=== PATIENT | female | born 1995 | race American Indian/Alaskan Native ===

== ENCOUNTER 2023-09-23 22:59 | Emergency (ER) | payer OTHER, SELFPAY ==
[2023-09-23 23:16] VITALS: BP 145/102; PULSE 104; RESP 16; TEMP 36.4; O2SAT 98; BMI 32.9
[2023-09-23] MEDS: Ondansetron ODT 4 MG TAB.RAPDIS SUBLINGUAL (23:22)
[2023-09-23 23:37] LABS: Basophils Absolute Auto 0.1 X10*3/uL (0.0-0.2); Basophils Percent Auto 0.7 % (0-2); Eosinophils Percent Auto 0.6 % (0-4); Hematocrit 37.4 % (37.0-47.0); Hemoglobin 13.3 g/dl (12.0-16.0); Imm Gran Abs Auto 0.02 X10*3/uL (0.00-0.03); Imm Gran Pct Auto 0.3 % (0.0-0.4); Lymphocytes Absolute Auto 1.5 X10*3/uL (1.2-4.9); Lymphocytes Percent Auto 22.4 % (20-40); MANUAL DIFF FLAG NO; Mean Corpuscular HGB Conc 35.6 g/dl (31.0-35.0); Mean Corpuscular Hemoglobin 29.2 pg (27.0-33.0); Mean Platelet Volume 9.8 fL (9.4-12.3); Monocytes Absolute Auto 0.5 X10*3/uL (0.1-1.2); Monocytes Percent Auto 6.9 % (2-11); Neutrophils Absolute Auto 4.7 x10*3/uL (2.0-8.3); Neutrophils Percent Auto 69.1 % (45-73); Platelet Count 446 X10*3/uL (160-400); Red Blood Count 4.56 X10*6/uL (4.20-5.50); Red Cell Distribution Width 15.4 % (11.0-16.0); White Blood Count 6.8 X10*3/uL (4.8-10.8)
[2023-09-23 23:46] LABS: UPreg QC Valid YES; Urine Pregnancy NEGATIVE (NEGATIVE)
[2023-09-23 23:47] LABS: Appearance Urine Hazy; Color Urine Yellow; Glucose Urine UA Negative (Negative); Leukocyte Esterase Urine Negative (Negative); Nitrite Urine Negative (Negative); Specific Gravity - Urine >= 1.030 (1.005-1.025); Urine Blood Negative (Negative); Urine Ketones Negative (Negative); Urine Protein Trace mg/dL (Neg-Trace)
[2023-09-23 23:49] LABS: Anion Gap 19 (12-20); Blood Urea Nitrogen 17 mg/dL (9-16); Calcium 8.7 mg/dL (8.4-10.2); Carbon Dioxide 17 mmol/L (22-29); Chloride 109 mmol/L (96-108); Creatinine Clr Calc Pharmacy 92.3; Estimated Glomerular Filt Rate > 60; Glucose Random 95 mg/dL (60-115); Potassium 4.1 mmol/L (3.3-5.1); Sodium 141 mmol/L (135-145)
--- NOTE | 2023-09-24 01:39 | ED.NAVMDI ---
HPI - Nausea/Vomiting/Diarrhea General Chief complaint: Nausea/Vomiting/Diarrhea Stated complaint: dizzy,weak Time Seen by Provider: 09/24/23 01:35 Source: patient Mode of arrival: ambulatory Limitations: no limitations History of Present Illness ED Provider: dao GEE Narrative: Patient with history of recurrent abdominal discomfort with headache with nausea vomiting almost every month during menstruation for many years has not seen any specialist or PCP for diagnosis has light sensitivity and nausea last vomiting was few hours ago no diarrhea no fever no chills Related Data Previous Rx's ?Medication ?Instructions ?Recorded bwwutskoop-hyredxwlxhnpc-kxdokbio 1 tab PO Q6H PRN haeadace #20 tabs 09/24/23 50 mg-325 mg-40 mg tablet omeprazole 40 mg capsule,delayed 40 mg PO DAILY #20 caps 09/24/23 release ondansetron 4 mg disintegrating 4 mg PO Q6-8H PRN nausea and 09/24/23 tablet vomiting #20 tabs sumatriptan succinate 50 mg tablet 50 mg PO Q2H PRN migraine headache 09/24/23 (Imitrex) #10 tabs Allergies Allergy/AdvReac Type Severity Reaction Status Date / Time No Known Allergies Allergy Verified 09/23/23 23:18 [No Known Allergies*] Review of Systems Review of Systems: Yes all other systems are reviewed and are negative PMFSH Past Medical History Medical History (Updated 09/24/23 @ 03:04 by Boston Benitez MD) Migraine Social History Social History Advance Directives: No Advance Directives Information Provided: Yes Patient : No Physical Exam Vital Signs: Vital Signs: Last Vital Signs Temp 98.8 F 09/24/23 03:52 Pulse 88 09/24/23 03:52 Resp 16 09/24/23 03:52 BP 129/74 09/24/23 03:52 Pulse Ox 98 09/24/23 03:52 O2 Del Method Room Air 09/24/23 03:52 BMI result Body Mass Index 32.9 Appearance: Alert. Oriented X3. No acute distress. Eyes: PERRLA, No Nystagmus ENT: Pharynx normal. Oral Mucosa moist temporal artery nontender Neck: Normal inspection. Neck supple. CVS: Normal heart rate and rhythm. Pulses normal. Respiratory: No respiratory distress. Equal air entry bilateral, no wheezing/rales/rhonchi Abdomen: Soft and nontender. Bowel sounds are present, no mass palpable, no CVA tenderness Skin: Skin warm and dry. Normal skin color. Normal skin turgor. Extremities: No lower extremity edema. No calf tenderness Neuro: Oriented X 3. No motor deficit. Medications Administered Discontinued Medications Generic Name Dose Route Start Last Admin Trade Name Freq PRN Reason Stop Dose Admin Acetaminophen/Butalbital/Caffeine 1 tab 09/24/23 02:15 09/24/23 02:27 Butalb/Acetamin/Caff 50/325/40 Tablet PO 09/24/23 02:16 1 tab ONCE ONE Administration Al Hydroxide/Mg Hydroxide 30 ml 09/24/23 03:01 09/24/23 03:32 Magnesium Hydrox/Alum Hydrox 30 Ml Oral.Susp PO 09/24/23 03:02 30 ml ONCE ONE Administration Omeprazole 40 mg 09/24/23 03:01 09/24/23 03:32 Omeprazole 40 Mg Capsule.Dr PO 09/24/23 03:02 40 mg ONCE ONE Administration Ondansetron HCl 4 mg 09/23/23 23:18 09/23/23 23:22 Ondansetron Odt 4 Mg Tab.Rapdis SUBLINGUAL 09/23/23 23:19 4 mg ONCE ONE Administration Sumatriptan Succinate 6 mg 09/24/23 02:15 09/24/23 02:26 Sumatriptan Succinate 6 Mg/0.5 Ml Vial SUBCUT 09/24/23 02:16 6 mg ONCE ONE Administration Medical Decision Making Medical Decision Making [facility] Narrative: Patient with recurrent vomiting and abdominal discomfort during menstruation likely abdominal migraine will treat with Imitrex and see the response , labs are stable patient feels slightly better will discharge patient home Differential Diagnosis Differential Diagnoses: The differential diagnosis associated with the presentation includes Migraine headache/gastritis Lab Data [facility] Lab Attestation statement: I reviewed the patient's lab results. 09/23/23 23:31 09/23/23 23:31 Labs: Lab Results 09/23/23 Range/Units 23:31 WBC 6.8 (4.8-10.8) X10*3/uL RBC 4.56 (4.20-5.50) X10*6/uL Hgb 13.3 (12.0-16.0) g/dl Hct 37.4 (37.0-47.0) % MCV 82.0 (80.0-98.0) fL MCH 29.2 (27.0-33.0) pg MCHC 35.6 H (31.0-35.0) g/dl RDW 15.4 (11.0-16.0) % Plt Count 446 H (160-400) X10*3/uL MPV 9.8 (9.4-12.3) fL Immature Gran % (Auto) 0.3 (0.0-0.4) % Neut % (Auto) 69.1 (45-73) % Lymph % (Auto) 22.4 (20-40) % [place] % (Auto) 6.9 (2-11) % Eos % (Auto) 0.6 (0-4) % Baso % (Auto) 0.7 (0-2) % Lymph # (Auto) 1.5 (1.2-4.9) X10*3/uL [place] # (Auto) 0.5 (0.1-1.2) X10*3/uL Eos # (Auto) 0.0 (0.0-0.4) X10*3/uL Baso # (Auto) 0.1 (0.0-0.2) X10*3/uL Abs Immat Gran (auto) 0.02 (0.00-0.03) X10*3/uL Absolute Neuts (auto) 4.7 (2.0-8.3) x10*3/uL Absolute Nucleated RBC 0.000 (0.0-0.012) X10*3/uL Nucleated RBC % (auto) 0.0 (0.0-0.2) /100WBC Sodium 141 (135-145) mmol/L Potassium 4.1 (3.3-5.1) mmol/L Chloride 109 H (96-108) mmol/L Carbon Dioxide 17 L (22-29) mmol/L Anion Gap 19 (12-20) BUN 17 H (9-16) mg/dL Creatinine 0.89 (0.5-1.4) mg/dL Estim Creat Clear Calc 92.3 Estimated GFR > 60 Random Glucose 95 (60-115) mg/dL Calcium 8.7 (8.4-10.2) mg/dL Urine Color Yellow Urine Appearance Hazy Urine pH 7.0 (5.0-9.0) Ur Specific [place] >= 1.030 H (1.005-1.025) Urine Protein Trace (Neg-Trace) mg/dL Urine Glucose (UA) Negative (Negative) mg/dL Urine Ketones Negative (Negative) mg/dL Urine Blood Negative (Negative) Urine Nitrite Negative (Negative) Ur Leukocyte Esterase Negative (Negative) Urine Test NEGATIVE (NEGATIVE) Discharge Plan Discharge Clinical Impression: Headache, migraine, Gastritis Patient Disposition: Home, Self-Care Instructions: Gastritis (ED), Migraine Headache (ED) Additional Instructions: Drink plenty of fluids Take medication for migraine headache as advised Imitrex 50 mg at onset of headache may repeat in 2 hours if headache continues maximum 2 tablets in 24 hours Fioricet 1 tablet every 6 hours as needed for headaches Medicine for nausea and gastritis as prescribed Follow with your PCP if not better Prescriptions: New sumatriptan succinate [Imitrex] 50 mg tablet 50 mg PO Q2H PRN (Reason: migraine headache) Qty: 10 0RF Rx Instructions: do not exceed 2 doses per 24 hrs yfnezexeed-ufuirayhwicxy-iavc 50-325-40 mg tablet 1 tab PO Q6H PRN (Reason: haeadace) Qty: 20 0RF omeprazole 40 mg capsule,delayed release(DR/EC) 40 mg PO DAILY Qty: 20 0RF ondansetron 4 mg tablet,disintegrating 4 mg PO Q6-8H PRN (Reason: nausea and vomiting) Qty: 20 0RF Stand Alone Forms: Work/School Release Interventions: ED Discharge Assessment Last Done: 09/24/23 03:52 Discharge Date/Time: 09/24/23 03:53 Print Language: Upper Sorbian
[2023-09-24 02:00] VITALS: BP 139/74; PULSE 95; RESP 18; TEMP 37.2; O2SAT 97
[2023-09-24] MEDS: SUMAtriptan succinate 6 MG/0.5 ML VIAL SUBCUT (02:26)
[2023-09-24] MEDS: Butalb/Acetamin/Caff 50/325/40 TABLET 1 TAB PO (02:27)
[2023-09-24] MEDS: Omeprazole 40 MG CAPSULE.DR PO (03:32)
[2023-09-24] MEDS: Magnesium Hydrox/Alum Hydrox 30 ML ORAL.SUSP PO (03:32)
[2023-09-24 03:52] VITALS: BP 129/74; PULSE 88; RESP 16; TEMP 37.1; O2SAT 98
== END 2023-09-24 03:53 | disposition home or self-care (01) ==
PROVIDERS: Emergency Provider Internal Medicine
DX: G43.909 Migraine, unspecified, not intractable, without status migrainosus (principal); K29.70 Gastritis, unspecified, without bleeding; R11.2 Nausea with vomiting, unspecified; Z79.899 Other long term (current) drug therapy
CPT/HCPCS: 36415; 80048; 81003; 81025; 85025; 96372; 99284; J3030

== ENCOUNTER 2023-12-17 14:46 | Emergency (ER) | payer OTHER, SELFPAY ==
--- NOTE | 2023-12-17 14:47 | ECG_ITS ---
Test Reason : CHEST PAIN Blood Pressure : / mmHG Vent. Rate : 119 BPM Atrial Rate : 119 BPM P-R Int : 114 ms QRS Dur : 060 ms QT Int : 308 ms P-R-T Axes : 078 041 007 degrees QTc Int : 433 ms Sinus tachycardia Possible Left atrial enlargement Nonspecific ST abnormality Abnormal ECG No previous ECGs available Referred By: Verna Mesa Electronically Signed By:LURDES SMITH
--- NOTE | 2023-12-17 15:04 | ED_ITS ---
HPI - Chest Pain General Chief Complaint: Nausea/Vomiting/Diarrhea Stated Complaint: Chest pain, SOB Time Seen by Provider: 12/17/23 16:37 Source: patient, RN notes reviewed and old records reviewed Mode of arrival: ambulatory History of Present Illness ED Provider: Verna Mesa PA-C HPI narrative: 28-year-old female with a past medical history of migraines presenting to the ED complaining of possible EtOH or food poisoning with associated nausea, vomiting, and inability to tolerate p.o. x3 days. States went out on Saturday had some drinks and went to [facility] for some Ramen & then developed symptoms. Also reports chest pain and SOB x today. Is currently on menses. Does report history of similar symptoms in the past during menstruation. Admits to seen in our ED a few months ago for similar symptoms. Denies fever, chills, abdominal pain, SOB at present, urinary symptoms Related Data Previous Rx's ?Medication ?Instructions ?Recorded dgdyjpoggu-pvikfjohwvkez-uhketaug 1 tab PO Q6H PRN haeadace #20 tabs 09/24/23 50 mg-325 mg-40 mg tablet omeprazole 40 mg capsule,delayed 40 mg PO DAILY #20 caps 09/24/23 release ondansetron 4 mg disintegrating 4 mg PO Q6-8H PRN nausea and 09/24/23 tablet vomiting #20 tabs sumatriptan succinate 50 mg tablet 50 mg PO Q2H PRN migraine headache 09/24/23 (Imitrex) #10 tabs nitrofurantoin 100 mg PO Q12H 7 days #14 caps 12/17/23 monohydrate/macrocrystals 100 mg capsule (Macrobid) ondansetron 4 mg disintegrating 4 mg PO Q8H PRN nausea and 12/17/23 tablet vomiting #10 tabs Allergies Allergy/AdvReac Type Severity Reaction Status Date / Time No Known Allergies Allergy Verified 12/17/23 15:06 [No Known Allergies*] Review of Systems 2 Review of Systems: Yes all other systems are reviewed and are negative Constitutional: Constitutional: Reports as per HPI [facility] Past Medical History Attestation statement: The following information was validated with the patient. Source: old records reviewed Medical History Migraine Social History Social History Alcohol intake: current Smoked in Last 30 Days: No Use of substances other than those prescribed or required for medical reasons: No Advance Directives: No Advance Directives Information Provided: Yes Do you have a plan to hurt others: No Plan Physical Exam 2 Vital Signs: Vital Signs: Last Vital Signs Temp 98.9 F 12/17/23 19:33 Pulse 88 12/17/23 19:33 Resp 18 12/17/23 19:33 BP 117/77 12/17/23 19:33 Pulse Ox 100 12/17/23 19:33 O2 Del Method Room Air 12/17/23 19:33 BMI result Body Mass Index 32.9 Const: General: cooperative, healthy appearing and no acute distress O rientation/consciousness: patient oriented x3 Limitations: no limitations HEENT: Head: Yes normal to inspection and Yes atraumatic Ears: hearing grossly normal bilaterally General nose exam: Normal external nose present Face and sinus: Yes normal facial exam Eyes: General: appearance normal, both eyes and all related structures EOM: EOMs intact bilaterally Neck: Neck: Yes normal visual inspection and Yes no meningeal signs Resp: Effort & Inspection: normal respiratory effort and no respiratory distress Auscultation: clear to auscultation bilaterally, no crackles, no rales, no rhonchi and no wheezes Cardio: Rate: regular rate Heart sounds: S1 normal heart sound present and S2 normal heart sound present GI: Inspection: Yes normal to inspection Palpation (GI): Soft to palpation, nontender, no guarding and not rigid : General: Yes no CVA tenderness Back/Spine/Pelvis: Back: no CVA tenderness Skin: Rashes: no rashes Wounds: no wounds Neuro: General: patient oriented x3, tone normal and no meningeal signs C ranial nerves: Yes CN's II-XII intact bilaterally Gait exam (Neuro): Normal gait present Extrem: General: Yes normal to inspection Course Course Course Narrative: This is a Rapid Medical Exam performed in triage by Verna Mesa PA-C. Full HPI, ROS and PE to be performed by primary ED provider. 28-year-old female presenting to the ED c/o concern for possible alcohol or food poisoning with nausea, vomiting & inability to tolerate PO x3 days. Admits chest pain x today w/SOB. Admits to drinking Saturday night. denies abdominal pain. LMP now. Admits to similar symptoms in the past, has been evaluated in our ED. PE: abdomen soft & nontender Plan: ekg, labs, UA -1700--no leukocytosis. Troponin negative. Mildly elevated AST/ALT. Labs otherwise reassuring -UA contaminated however with positive nitrates, wbc's, and bacteria > will tx with Abx -tox screen negative -viral studies negative > patient reports symptomatic improvement & tolerated PO in the ED without difficulty Results discussed with patient including worrisome signs and symptoms and strict return precautions, and when to return to the emergency department. They verbalized understanding and feel safe for discharge at this time. Medications Administered Discontinued Medications Generic Name Dose Route Start Last Admin Trade Name Marguerite PRN Reason Stop Dose Admin Al Hydroxide/Mg Hydroxide 30 ml 12/17/23 17:02 12/17/23 17:13 Magnesium Hydrox/Alum Hydrox 30 Ml Oral.Susp PO 12/17/23 17:03 30 ml ONCE ONE Administration Famotidine 20 mg 12/17/23 17:02 12/17/23 17:13 Famotidine/Pf 20 Mg/2 Ml Vial IVPUSH 12/17/23 17:03 20 mg ONCE ONE Administration Sodium Chloride 1,000 mls @ 999 mls/hr 12/17/23 17:00 12/17/23 18:03 Ns IV 12/17/23 18:00 Infused .Q1H1M GEORGE Infusion Ondansetron HCl 4 mg 12/17/23 16:47 12/17/23 16:51 Ondansetron Hcl 4 Mg/2 Ml Vial IVPUSH 12/17/23 16:48 4 mg ONCE ONE Administration Medical Decision Making Medical Decision Making MDM Narrative: 28-year-old female with a past medical history of migraines presenting to the ED complaining of possible EtOH or food poisoning with associated nausea, vomiting, and inability to tolerate p.o. x3 days. Also reports chest pain and SOB x today. On exam hypertensive, tachycardic, NAD, nontoxic appearing, lungs CTA, abdomen soft/nontender. Concern for ETOH/food poisoning vs gastroenteritis vs menstruation complication vs viral illness. Low suspicion for intra-abdominal process including cholecystitis/pancreatitis/appendicitis or diverticulitis. Unlikely PE/ACS. Rule out Plan: EKG, labs, UA, , viral testing, IVF, antiemetic, p.o. trial, re- evaluate Please refer to course for remaining clinical decision making, interpretation of labs/imaging results, and discussions with consultants and/or family members. Differential Diagnosis Differential Diagnoses: The differential diagnosis associated with the presentation includes As above Admission/Observation Consideration of admission/observation: Escalation of care including admission/observation considered Lab Data MDM Lab Attestation statement: I reviewed the patient's lab results. 12/17/23 15:41 12/17/23 15:41 Labs: Lab Results 12/17/23 12/17/23 12/17/23 Range/Units 15:38 15:41 16:15 WBC 8.0 (4.8-10.8) X10*3/uL RBC 4.35 (4.20-5.50) X10*6/uL Hgb 12.8 (12.0-16.0) g/dl Hct 37.5 (37.0-47.0) % MCV 86.2 (80.0-98.0) fL MCH 29.4 (27.0-33.0) pg MCHC 34.1 (31.0-35.0) g/dl RDW 14.1 (11.0-16.0) % Plt Count 422 H (160-400) X10*3/uL MPV 10.1 (9.4-12.3) fL Immature Gran % (Auto) 0.2 (0.0-0.4) % Neut % (Auto) 81.1 H (45-73) % Lymph % (Auto) 13.8 L (20-40) % [place] % (Auto) 4.0 (2-11) % Eos % (Auto) 0.4 (0-4) % Baso % (Auto) 0.5 (0-2) % Lymph # (Auto) 1.1 L (1.2-4.9) X10*3/uL [place] # (Auto) 0.3 (0.1-1.2) X10*3/uL Eos # (Auto) 0.0 (0.0-0.4) X10*3/uL Baso # (Auto) 0.0 (0.0-0.2) X10*3/uL Abs Immat Gran (auto) 0.02 (0.00-0.03) X10*3/uL Absolute Neuts (auto) 6.5 (2.0-8.3) x10*3/uL Absolute Nucleated RBC 0.000 (0.0-0.012) X10*3/uL Nucleated RBC % (auto) 0.0 (0.0-0.2) /100WBC Sodium 140 (135-145) mmol/L Potassium 4.2 (3.3-5.1) mmol/L Chloride 105 (96-108) mmol/L Carbon Dioxide 22 (22-29) mmol/L Anion Gap 17 (12-20) BUN 14 (9-16) mg/dL Creatinine 1.07 (0.5-1.4) mg/dL Estim Creat Clear Calc 73.8 Estimated GFR > 60 Random Glucose 89 (60-115) mg/dL Calcium 8.9 (8.4-10.2) mg/dL Magnesium 1.6 (1.6-2.6) mg/dL Total Bilirubin 0.7 (0.0-1.0) mg/dL Direct Bilirubin 0.2 (0.0-0.5) mg/dL AST 47 H (5-31) U/L ALT 65 H (0-31) U/L Alkaline Phosphatase 65 (39-117) U/L Troponin I High Sens < 2.7 (<3.5-17.0) ng/L Total Protein 7.6 (6.5-8.0) g/dL Albumin 4.3 (3.5-5.0) g/dL Lipase 12 (8-78) U/L Urine Color Dark Yellow Urine Appearance Cloudy Urine pH 6.0 (5.0-9.0) Ur Specific [place] >= 1.030 H (1.005-1.025) Urine Protein 30 (1+) H (Neg-Trace) mg/dL Urine Glucose (UA) Negative (Negative) mg/dL Urine Ketones 80 (Negative) mg/dL Urine Blood Large (3+) H (Negative) Urine Nitrite Positive H (Negative) Ur Leukocyte Esterase Negative (Negative) Urine RBC 6-10 H (0-2) /HPF Urine WBC 11-20 H (0-5) /HPF Ur Squamous Epith Cells 11-20 (0-2) /HPF Urine Bacteria 4+ (None Seen) Hyaline Casts 0-2 (0-2) /LPF Urine Test NEGATIVE (NEGATIVE) Urine Opiates Screen Not Detected (Not Detect) Ur Buprenorphine Scrn Not Detected (Not Detect) ng/mL Ur Oxycodone Screen Not Detected (Not Detect) ng/mL Urine Methadone Screen Not Detected (Not Detect) ng/mL Urine Fentanyl Screen Not Detected (Not Detect) Ur Barbiturates Screen Not Detected (Not Detect) Ur Phencyclidine Scrn Not Detected (Not Detect) Ur Amphetamines Screen Not Detected (Not Detect) U Benzodiazepines Scrn Not Detected (Not Detect) Urine Cocaine Screen Not Detected (Not Detect) U Marijuana (THC) Screen Not Detected (Not Detect) Ethyl Alcohol < 10 mg/dL Influenza Type A (PCR) NEGATIVE (Negative) Influenza Type B (PCR) NEGATIVE (Negative) RSV RNA Qual (PCR) NEGATIVE (Negative) SARS-CoV-2 RNA (RT-PCR) NEGATIVE (Negative) Independent Interpretation I performed an independent interpretation of an: EKG (My interpretation EKG sinus tachycardia rate of 119. NE interval 114. QTC 433. No previous to compare. No STEMI) Radiology Impression Discussion of test interpretation with radiology: I have reviewed the radiologist's reading. External Record Review External record reviewed: Inpatient record, Office record, Outpatient record, Prior outpatient labs, Prior outpatient radiology, Primary care record and Outside ED record Tests considered The following testing was considered but not selected: As above Prescription Management I considered prescription management with: Pain Medication, Antiviral and Antibiotic Social Determinants Patient?s care significantly limited by Social Determinants of Health including: Other Social Determinant of Health Discharge Plan Discharge Clinical Impression: Nausea & vomiting, Atypical chest pain, UTI (urinary tract infection) Patient Disposition: Home, Self-Care Instructions: Urinary Tract Infection in Women (DC), Acute Nausea and Vomiting (ED) Additional Instructions: your blood work was reassuring your urine is infected, Macrobid is an antibiotic please take as prescribed. Zofran is an anti-nausea medication, take as needed for nausea and vomiting Please follow-up with your doctor as well as Gastroenterology. If her symptoms persist or worsen, you are unable to eat or drink, persistent nausea/vomiting, pain, chest pain, shortness of breath return to the ED Prescriptions: New nitrofurantoin monohyd/m-cryst [Macrobid] 100 mg capsule 100 mg PO Q12H 7 Days Qty: 14 0RF Rx Instructions: must administer with a meal/food ondansetron 4 mg tablet,disintegrating 4 mg PO Q8H PRN (Reason: nausea and vomiting) Qty: 10 0RF No Action sumatriptan succinate [Imitrex] 50 mg tablet 50 mg PO Q2H PRN (Reason: migraine headache) Qty: 10 0RF Rx Instructions: do not exceed 2 doses per 24 hrs yuogetlvsf-fqvpnhbrnuyre-nqev 50-325-40 mg tablet 1 tab PO Q6H PRN (Reason: haeadace) Qty: 20 0RF omeprazole 40 mg capsule,delayed release(DR/EC) 40 mg PO DAILY Qty: 20 0RF ondansetron 4 mg tablet,disintegrating 4 mg PO Q6-8H PRN (Reason: nausea and vomiting) Qty: 20 0RF Referrals: [facility] [place] [facility] [Provider Group] - 1 week Stand Alone Forms: Work/School Release Interventions: ED Discharge Assessment Last Done: 12/17/23 19:33 Discharge Date/Time: 12/17/23 19:34 Print Language: Marshallese
[2023-12-17 15:05] VITALS: BP 150/101; PULSE 114; RESP 19; TEMP 37; O2SAT 99; BMI 32.9
[2023-12-17 15:46] LABS: MANUAL DIFF FLAG NO
[2023-12-17 15:50] VITALS: BP 125/78; PULSE 101; RESP 22; TEMP 36.6; O2SAT 98
[2023-12-17 15:56] LABS: Basophils Percent Auto 0.5 % (0-2); Eosinophils Percent Auto 0.4 % (0-4); Hematocrit 37.5 % (37.0-47.0); Hemoglobin 12.8 g/dl (12.0-16.0); Imm Gran Abs Auto 0.02 X10*3/uL (0.00-0.03); Imm Gran Pct Auto 0.2 % (0.0-0.4); Lymphocytes Absolute Auto 1.1 X10*3/uL (1.2-4.9); Lymphocytes Percent Auto 13.8 % (20-40); Mean Corpuscular HGB Conc 34.1 g/dl (31.0-35.0); Mean Corpuscular Hemoglobin 29.4 pg (27.0-33.0); Mean Corpuscular Volume 86.2 fL (80.0-98.0); Mean Platelet Volume 10.1 fL (9.4-12.3); Monocytes Absolute Auto 0.3 X10*3/uL (0.1-1.2); Neutrophils Absolute Auto 6.5 x10*3/uL (2.0-8.3); Neutrophils Percent Auto 81.1 % (45-73); Platelet Count 422 X10*3/uL (160-400); Red Blood Count 4.35 X10*6/uL (4.20-5.50); Red Cell Distribution Width 14.1 % (11.0-16.0)
[2023-12-17 16:08] LABS: Alanine Aminotransferase 65 U/L (0-31); Albumin Level 4.3 g/dL (3.5-5.0); Alkaline Phosphatase 65 U/L (39-117); Anion Gap 17 (12-20); Aspartate Amino Transferase 47 U/L (5-31); Bilirubin Direct 0.2 mg/dL (0.0-0.5); Bilirubin Total 0.7 mg/dL (0.0-1.0); Blood Urea Nitrogen 14 mg/dL (9-16); Calcium 8.9 mg/dL (8.4-10.2); Carbon Dioxide 22 mmol/L (22-29); Chloride 105 mmol/L (96-108); Creatinine Clr Calc Pharmacy 73.8; Estimated Glomerular Filt Rate > 60; Ethanol < 10 mg/dL; Glucose Random 89 mg/dL (60-115); Lipase 12 U/L (8-78); Magnesium 1.6 mg/dL (1.6-2.6); Potassium 4.2 mmol/L (3.3-5.1); Sodium 140 mmol/L (135-145); Total Protein 7.6 g/dL (6.5-8.0)
[2023-12-17 16:12] LABS: Troponin-I High Sensitivity < 2.7 ng/L (<3.5-17.0)
[2023-12-17 16:24] LABS: Appearance Urine Cloudy; Color Urine Dark Yellow; Glucose Urine UA Negative (Negative); Leukocyte Esterase Urine Negative (Negative); Nitrite Urine Positive (Negative); Specific Gravity - Urine >= 1.030 (1.005-1.025); UMIC TRIGGER UACC YES; Urine Blood Large (3+) (Negative); Urine Ketones 80 mg/dL (Negative); Urine Protein 30 (1+) mg/dL (Neg-Trace)
[2023-12-17 16:33] LABS: Bacteria Urine 4+ (None Seen); Hyaline Casts Urine 0-2 /LPF (0-2); UACC Culture Trigger YES
[2023-12-17 16:38] LABS: Amphetamine Screen Urine Not Detected (Not Detect); Barbiturates, Urine Not Detected (Not Detect); Benzodiazepines Screen Urine Not Detected (Not Detect); Buprenorphine Scr Not Detected (Not Detect); Cannabinoid Screen Urine Not Detected (Not Detect); Cocaine Screen Urine Not Detected (Not Detect); Fentanyl, urine Not Detected (Not Detect); Methadone Screen, Urine Not Detected (Not Detect); Opiate Screen Urine Not Detected (Not Detect); Oxycodone Screen Urine Not Detected (Not Detect); Phencyclidine Screen Urine Not Detected (Not Detect)
--- NOTE | 2023-12-17 16:39 | PC.NURSE ---
comes to ED with nausea and vomiting for a few days which typically she associates with her period but this time symptoms were worse. Pt says that she also has CP and SOB which was concerning to her so she decided to come to the ER. Pt hasn't had much PO intake in the past 2 days. Lips look dry. 20g PIV left AC. awaiting provider pickle pumper
[2023-12-17 16:40] LABS: UPreg QC Valid YES; Urine Pregnancy NEGATIVE (NEGATIVE)
[2023-12-17 16:46] LABS: Influenza A PCR NEGATIVE (Negative); Influenza B PCR NEGATIVE (Negative); Resp Syncy Virus RNA Qual PCR NEGATIVE (Negative); SARS COV2 PCR INHOUSE NEGATIVE (Negative)
[2023-12-17] MEDS: 0.9 % Sodium Chloride 1,000 ML 999 ML IV (16:51)
[2023-12-17] MEDS: ondansetron HCL 4 MG/2 ML VIAL IVPUSH (16:51)
[2023-12-17] MEDS: Famotidine/PF 20 MG/2 ML VIAL IVPUSH (17:13)
[2023-12-17] MEDS: Magnesium Hydrox/Alum Hydrox 30 ML ORAL.SUSP PO (17:13)
[2023-12-17 18:40] VITALS: BP 117/77; PULSE 88; TEMP 37.2; O2SAT 100
--- NOTE | 2023-12-17 19:18 | PC.NURSE ---
Assumed care of pt. Pt lying on stretcher, no acute distress at this time. PO trial successful, preparing for discharge.
[2023-12-17 19:33] VITALS: BP 117/77; PULSE 88; RESP 18; TEMP 37.2; O2SAT 100
== END 2023-12-17 19:34 | disposition home or self-care (01) ==
PROVIDERS: Physician Assistant; Emergency Provider Emergency Medicine Emergency Medical Services
DX: R07.89 Other chest pain (principal); N39.0 Urinary tract infection, site not specified; R11.2 Nausea with vomiting, unspecified; R06.02 Shortness of breath; Z79.899 Other long term (current) drug therapy; Z51.81 Encounter for therapeutic drug level monitoring; Z03.818 Encounter for observation for suspected exposure to other biological agents ruled out
CPT/HCPCS: 0241U; 36415; 80048; 80076; 80307; 81001; 81025; 83690; 83735; 84484; 85025; 87086; 87147; 93005; 96361; 96374; 96375; 99285; J2405

== ENCOUNTER → 2023-12-17 14:47 | Outpatient (BNV) | payer OTHER, SELFPAY | PROVIDERS: Emergency Provider Emergency Medicine Emergency Medical Services; Visit Provider Internal Medicine | DX: R07.9 Chest pain, unspecified (principal); R00.0 Tachycardia, unspecified; R94.31 Abnormal electrocardiogram [ECG] [EKG] | CPT/HCPCS: 93010 ==